=== PATIENT | male | born 1960 | race Caucasian/White ===

== ENCOUNTER 2017-10-07 11:58 | Emergency (ER) | payer OTHER ==
[~2017-10-07] VITALS: Ht 175.3 cm; Wt 81.6 kg
[2017-10-07 12:12] VITALS: BP 159/96
[2017-10-07] MEDS ORDERED: Ketorolac 30mg Inj IV ONE (12:15)
--- NOTE | 2017-10-07 12:15 | Emergency Room Report ---
History of Present Illness General Chief Complaint: General Complaint Source: Patient Present Illness HPI Patient is a 57-year-old male brought in by walk-in after increased right calf pain and swelling. The patient reports having increased pain to the right leg below the knee. The patient noted have increased calf circumference a primary care physician was sent in for possible deep venous thrombosis. Patient followed by Dr. Woody Heck. The patient stated that he been having increased pain in his right leg after falling asleep in the chair. He denied recent trauma. He denies prior malignancy. The patient is a smoker. He denies any chest pain or shortness of breath. Allergies: Coded Allergies: No Known Allergies (Unverified , 10/07/17) Patient History Past Medical History: see triage record Social History: Reports: smoking Reviewed Nursing Documentation: PMH: Agreed, PSxH: Agreed Nursing Documentation-PMH Past Medical History: No History, Except For Hx Hypertension: Yes Review of Systems All Other Systems: negative except mentioned in HPI Physical Exam Vital Signs Date Time Temp Pulse Resp B/P (MAP) Pulse Ox O2 Delivery O2 Flow Rate FiO2 10/07/17 12:02 98.2 84 16 159/96 98 Room Air 98.2 Sp02 EP Interpretation: reviewed, normal General Appearance: normal inspection, well appearing, no apparent distress, alert, GCS 15 Head: atraumatic ENT: normal ENT inspection, hearing grossly normal, normal voice Neck: normal inspection, full range of motion, supple, no bony tend Respiratory: normal inspection, lungs clear, normal breath sounds, no respiratory distress, no retraction, no wheezing Cardiovascular #1: regular rate, rhythm, no edema Gastrointestinal: normal inspection, normal bowel sounds, non tender, soft, no guarding, no hernia Genitourinary: no CVA tenderness Musculoskeletal: normal inspection, back normal, normal range of motion, decreased range of motion, swelling - right Neurologic: normal inspection, alert, oriented x3, responsive, chemical strength tester III-XII nml as tested, speech normal Psychiatric: normal inspection, judgement/insight normal, mood/affect normal Skin: normal inspection, normal color, no rash Medical Decision Making Diagnostic Impression: Primary Impression: Deep venous thrombosis ER Course Patient presented for leg swelling. Differential diagnosis included but was not limited to DVT, fracture, contusion, vascular insufficiency, aortic aneurysm, cellulitis. Because of complexity of patient's case laboratory testing and imaging studies were ordered. Duplex ultrasound of her lower extremities had extensive deep venous thrombosis. Patient denied any chest pain. The patient noted have history of smoking. Patient states that he fell asleep in a chair but otherwise has no known precipitating factors. Patient's findings were discussed with patient and his primary care physician. The patient will be hospitalized for anticoagulation. Patient was discussed with Dr. Saeed for transfer to [facility]. Labs Test 10/07/17 12:25 White Blood Count 9.3 K/UL (4.8-10.8) Red Blood Count 5.11 M/UL (4.70-6.10) Hemoglobin 16.2 G/DL (14.2-18.0) Hematocrit 47.3 % (42.0-52.0) Mean Corpuscular Volume 93 FL (80-99) Mean Corpuscular Hemoglobin 31.8 PG (27.0-31.0) Mean Corpuscular Hemoglobin Concent 34.3 G/DL (32.0-36.0) Red Cell Distribution Width 10.9 % (11.6-14.8) Platelet Count 178 K/UL (150-450) Mean Platelet Volume 7.6 FL (6.5-10.1) Neutrophils (%) (Auto) 69.2 % (45.0-75.0) Lymphocytes (%) (Auto) 23.2 % (20.0-45.0) Monocytes (%) (Auto) 6.1 % (1.0-10.0) Eosinophils (%) (Auto) 0.7 % (0.0-3.0) Basophils (%) (Auto) 0.8 % (0.0-2.0) Prothrombin Time 10.4 SEC (9.30-11.50) Prothromb Time International Ratio 1.0 (0.9-1.1) Activated Partial Thromboplast Time 26 SEC (23-33) Chest X-Ray Diagnostic Results Chest X-Ray Diagnostic Results : Chest X-Ray Ordered: Yes # of Views/Limited/Complete: 1 View Indication: Other - dvt EP Interpretation: Yes PA Xray: Interpretation reviewed Interpretation: no consolidation, no effusion, no pneumothorax, no acute cardiopulmonary disease Impression: No acute disease Electronically Signed by: Electronically signed by Dr. Abdi Hancock M.D. Last Vital Signs Date Time Temp Pulse Resp B/P (MAP) Pulse Ox O2 Delivery O2 Flow Rate FiO2 10/07/17 12:12 98.2 16 159/96 98 Room Air 98.2 10/07/17 12:02 84 Status: unchanged Disposition: ADMITTED INPATIENT Condition: Abdi Underwood Oct 07, 2017 12:15
[2017-10-07 12:53] LABS: BASOPHILS % (AUTO) 0.8 % (0.0-2.0); EOSINOPHILS % (AUTO) 0.7 % (0.0-3.0); HEMATOCRIT 47.3 % (42.0-52.0); HEMOGLOBIN 16.2 G/DL (14.2-18.0); LYMPHOCYTES % (AUTO) 23.2 % (20.0-45.0); MEAN CORPUSCULAR VOLUME 93 FL (80-99); MONOCYTES % (AUTO) 6.1 % (1.0-10.0); NEUTROPHILS % (AUTO) 69.2 % (45.0-75.0); PLATELET COUNT 178 K/UL (150-450); RED BLOOD COUNT 5.11 M/UL (4.70-6.10); RED CELL DISTRIBUTION WIDTH 10.9 % (11.6-14.8); WHITE BLOOD COUNT 9.3 K/UL (4.8-10.8)
[2017-10-07 13:08] LABS: ANION GAP 5 mmol/L (5-15); BLOOD UREA NITROGEN 10 mg/dL (7-18); CALCIUM 9.5 MG/DL (8.5-10.1); CARBON DIOXIDE 29 MMOL/L (21-32); CHLORIDE 102 MMOL/L (98-107); CREATININE 0.9 MG/DL (0.55-1.30); POTASSIUM 4.1 MMOL/L (3.5-5.1); SODIUM 136 MMOL/L (136-145)
[2017-10-07 13:12] LABS: ALANINE AMINOTRANSFERASE 27 U/L (12-78); ALBUMIN 3.8 G/DL (3.4-5.0); ALKALINE PHOSPHATASE 79 U/L (46-116); ASPARTATE AMINO TRANSFERASE 17 U/L (15-37)
[2017-10-07] MEDS ORDERED: Heparin 25,000u/D5W 500ml 500 ML IV SCH (13:15)
[2017-10-07] MEDS ORDERED: Heparin 5000 units/ml inj IV ONE (13:15)
[2017-10-07] MEDS ORDERED: SIMVASTATIN20 MG ORAL (13:38)
[2017-10-07] MEDS ORDERED: GLUCOPHAGE XR500 MG ORAL (13:39)
[2017-10-07 13:40] VITALS: BP 165/87
--- NOTE | 2017-10-07 14:44 | Diagnostic Imaging Report ---
Indication: Reason For Exam: SOB Technique: One view of the chest Comparison: none Findings: Lungs and pleural spaces are clear. Heart size is upper limits normal Impression: No acute process
[2017-10-07 15:21] VITALS: BP 152/96
[2017-10-07 15:24] VITALS: BP 152/96
--- NOTE | 2017-10-12 21:55 | Diagnostic Imaging Report ---
APPROVED REPORT CPT Code: 45815 Present Symptoms Comments: Right leg Swelling RIGHT LEG: Venous imaging reveals acute thrombus in the common femoral, popliteal, posterior, and peroneal veins. Remainder of the deep venous system within normal limits. No evidence of thrombus in the anterior veins. Greater saphenous vein also within normal limits. Dr. Hancock was notified of abnormal results at 1300 hours.
== END 2017-10-07 15:37 | disposition short-term general hospital (02) ==
LOC: EMR 12:10
DX: I82.411 Acute embolism and thrombosis of right femoral vein (principal); I82.431 Acute embolism and thrombosis of right popliteal vein; I10 Essential (primary) hypertension
CPT/HCPCS: 36415; 71045; 80053; 85025; 85610; 85730; 93971; 96361; 96374; 96375; 99284; J1644; J1885

== ENCOUNTER 2020-03-05 13:01 | Outpatient (CLI) | payer MEDICAID ==
[~2020-03-05 13:01] MED LIST: GLUCOPHAGE XR500 MG ORAL; SIMVASTATIN20 MG ORAL
[2020-03-05] MEDS ORDERED: OMEPRAZOLE40 M1 ORAL (15:50)
[2020-03-05] MEDS ORDERED: XARELTO20 MG ORAL (15:50)
[2020-03-05] MEDS ORDERED: PROPRANOLOL XL80 M1 GT (15:50)
[2020-03-05] MEDS ORDERED: VITAMIN D350 MC1 PO (15:50)
== END 2020-03-05 15:01 | disposition home or self-care (01) ==
DX: K62.5 Hemorrhage of anus and rectum (principal); K21.9 Gastro-esophageal reflux disease without esophagitis; Z86.718 Personal history of other venous thrombosis and embolism; Z79.01 Long term (current) use of anticoagulants; E11.9 Type 2 diabetes mellitus without complications; E78.5 Hyperlipidemia, unspecified; Z79.899 Other long term (current) drug therapy; F17.210 Nicotine dependence, cigarettes, uncomplicated; K59.00 Constipation, unspecified

== ENCOUNTER 2020-04-21 13:19 | Outpatient (CLI) | payer MEDICAID ==
[~2020-04-21 13:19] MED LIST changes: +OMEPRAZOLE40 M1 ORAL; +PROPRANOLOL XL80 M1 GT; +VITAMIN D350 MC1 PO; +XARELTO20 MG ORAL
[2020-04-21 14:14] VITALS: BP 130/72
== END 2020-04-21 15:06 | disposition home or self-care (01) ==
LOC: PAN 13:19
DX: R10.9 Unspecified abdominal pain (principal)
CPT/HCPCS: 99212